=== PATIENT | male | born 1945 | race Caucasian/White ===

== ENCOUNTER 2023-09-23 11:53 | Outpatient (CLI) | payer MEDICARE, SELFPAY ==
[2023-09-23 12:01] VITALS: BP 158/79; PULSE 78; RESP 16; O2SAT 95
[2023-09-23] MEDS: TETRACAINE 0.5% OPHTH 1 DROP EYE-BOTH ×2 (12:06→12:18)
[2023-09-23] MEDS: BRIMONIDINE TARTRATE 0.2% OPHTH 1 DROP EYE-BOTH (12:07)
--- NOTE | 2023-09-23 12:46 | P.OPTPRC_ITS ---
Procedure Note Date of procedure: 09/23/23 Will [facility] bill your pro fee for this procedure?: Yes Procedure Description: SURGEON: Paige Bryant MD PREOPERATIVE DIAGNOSIS: Posterior capsular opacity, right and left eye POSTOPERATIVE DIAGNOSIS: Posterior capsular opacity, right and left eye PROCEDURE: YAG laser capsulotomy, both eyes ANESTHESIA: Topical. ESTIMATED BLOOD LOSS: None PATHOLOGY SPECIMEN: None COMPLICATIONS: None INDICATIONS: See consult note for details. The risks, benefits and alternatives of the procedure were explained to the patient, who elected to proceed and signed informed consent to do so. PROCEDURE: The patient was brought to the pre-holding area where the right and left eyes were identified as the operative eyes. I placed my initials above the eyes. The following was given in both eyes: The patient received 2 sets of 1 drop of 0.5% tetracaine and 1 drop of 1% tropicamide. They also received 1 drop of 0.2% brimonidine. They received 1 drop of 0.5% tetracaine immediately prior to bringing them back for the procedure. The patient was then brought to the procedure room where the right and left eyes were again identified as the operative eyes. A YAG Tacos capsulotomy lens was placed on the right eye. The laser was administered using a total number of 13 shots with an energy of 2.4 mJ per shot for a total energy of 31 mJ. The patient tolerated the procedure well. A YAG Tacos capsulotomy lens was placed on the left eye. The laser was administered using a total number of 17 shots with an energy of 2.4 mJ per shot for a total energy of 41 mJ. The patient tolerated the procedure well. DISPOSITION: The patient was taken back to the pre-holding area and given 1 drop of 0.2% brimonidine in both eyes. They were discharged to home in stable condition. The patient was instructed to call me or go to the emergency department with any sudden change, including dramatic loss of vision, severe pain in the eye or eyebrow region, nausea, or vomiting. The patient was instructed to use the 0.2% brimonidine 1 drop 2 times a day in both eyes for 1 week. The patient will follow up in the clinic in 1-2 weeks.
== END 2023-09-23 12:46 | disposition home or self-care (01) ==
LOC: EYE PRC 11:55
PROVIDERS: PCP Family Medicine; Visit Provider Ophthalmology
DX: H26.9 Unspecified cataract (principal)
CPT/HCPCS: 66821; A9270

== ENCOUNTER 2024-04-20 19:19 | Emergency (ER) | payer MEDICARE, SELFPAY ==
[2024-04-20 19:23] VITALS: BP 163/63; PULSE 70; RESP 22; TEMP 36.4; O2SAT 97; BMI 23.6
--- NOTE | 2024-04-20 19:34 | CRLHL7_ITS ---
For Patients: As a result of the Century Cures Act, medical imaging exams and procedure reports are released immediately into your electronic medical record. You may view this report before your referring provider. If you have questions, please contact your health care provider. Indication: Left-sided abdominal pain, history of kidney stones Technique: Volumetric multidetector CT images of the abdomen and pelvis were without the administration of intravenous contrast. Comparison: None available. Findings: The lung bases are clear. The liver is normal in attenuation without intrahepatic biliary ductal dilatation. The gallbladder is unremarkable without evidence of radiopaque calculus. There is no significant common biliary ductal dilatation or abrupt cut off. The spleen is normal in attenuation and size. The stomach and duodenum are grossly unremarkable. There is mild pancreatic atrophy. Otherwise the pancreas is within normal limits. The adrenal glands are unremarkable. Demonstration of moderate parapelvic cystic changes of the bilateral kidneys with left-sided hydronephrosis and hydroureter. There is demonstration of a 2.8 millimeter calculus in the dependent portion of the bladder. There is moderate stool seen throughout the colon with minimal colonic diverticulosis without definite evidence of diverticulitis. The appendix is unremarkable. There is no significant mesenteric, retroperitoneal, or pelvic sidewall lymph nodes. The aorta is nonaneurysmal. There is no significant atherosclerotic disease appreciated. There is mild prostatic hypertrophy. Minimal fat containing bilateral inguinal canals. There is no free fluid or free air. Small fat containing umbilical hernia. Moderate degenerative changes of the lumbar spine without acute osseous abnormality. Impression: Parapelvic cystic changes of the bilateral kidneys with left-sided hydronephrosis and hydroureter with demonstration of a 2.8 millimeter calculus in the dependent portion of the bladder. Moderate stool seen throughout the colon. Please note that all CT scans at this facility use dose modulation, iterative reconstruction, and/or weight-based dosing when appropriate to reduce radiation dose to as low as reasonably achievable. Dictated by Peyman Paige MD @ 04/20/2024 8:22:19 PM (Electronically Signed)
--- NOTE | 2024-04-20 19:35 | ED_ITS ---
HPI - Abdominal Pain General Chief Complaint: Abdominal Pain Stated Complaint: Poss kidney stone Time Seen by Provider: 04/20/24 19:31 History of Present Illness HPI narrative: This 79-year-old male comes in with left abdominal pain radiating into his left inguinal region. He is pacing in the room and states that he has a history of kidney stones. These symptoms began about 4 hours ago. Prior to this he was feeling normal. Related Data Home Medications ?Medication ?Instructions ?Recorded ?Confirmed lisinopril 10 mg tablet 10 mg PO DAILY 04/20/24 04/20/24 Allergies Allergy/AdvReac Type Severity Reaction Status Date / Time butalbital Allergy Intermediate Verified 04/20/24 19:22 morphine Allergy Intermediate Verified 04/20/24 19:22 penicillin G Allergy Intermediate Verified 04/20/24 19:22 Review of Systems Status of ROS Reports: 10 or more systems reviewed and unremarkable except as noted in History and below Narrative Constitutional: No fevers, no weight gain or loss. Eyes: No discharge. No vision changes. HENT: No congestion, no sore throat, no ear pain. Cardiovascular: No chest pain, no palpitations. Respiratory: No shortness of breath, no wheezes, no cough. Gastrointestinal: No vomiting, no diarrhea. Abdominal pain as described above. Genitourinary: No dysuria, no hematuria. Musculoskeletal: Normal range of motion. Skin: No rashes, no pruritis. Neurological: No dizziness, weakness, sensory change, speech change. Endo/Heme/Allergies: No bruising or bleeding. No polydipsia. Pysch: no suicidality, no anxiety, no insomnia. All other systems reviewed and are negative. PFSH PFSH Social History Non-prescribed substance use: denies use Exam Narrative: Exam Narrative: Constitutional: Well-developed, well-nourished, no acute distress. HEENT: Normocephalic, atraumatic. Neck: Normal range of motion. Nontender. Supple. Heart: Regular. No murmurs. Normal rate. Intact distal pulses. Lungs: Clear to auscultation. No chest discomfort. No wheezes, rhonchi, or rales. Abdomen: Normal bowel sounds. Tenderness in lower left abdomen. No rebound tenderness. Genitalia: Deferred. Back: No midline tenderness. Normal range of motion. Extremities: Normal range of motion. No injury. Skin: Intact. No rash. Warm. No erythema or pallor. Neurologic: No altered sensation. No weakness. Alert and oriented. Psychiatric: No suicidality. No anxiety or depression. No insomnia. Nursing notes and vitals signs are reviewed. Const: Vital Signs, click to edit/add: Vital Signs - 24 hr 04/20/24 19:23 Temperature 97.6 F Pulse Rate [Pulse Oximeter] 70 Respiratory Rate 22 Blood Pressure [Ri ght Upper Arm] 163/63 H Pulse Oximetry 97 Oxygen Delivery Me thod Room Air Course Vital Signs Vital signs: Initial Vital Signs Temperature 97.6 F 04/20/24 19:23 Temperature Source Temporal Artery Scan 04/20/24 19:23 Pulse Rate 70 04/20/24 19:23 Pulse Rhythm Regular 04/20/24 19:23 Respiratory Rate 22 04/20/24 19:23 Blood Pressure 163/63 H 04/20/24 19:23 Blood Pressure Mean 96 04/20/24 19:23 Blood Pressure Position Sitting 04/20/24 19:23 Pulse Oximetry 97 04/20/24 19:23 Oxygen Delivery Method Room Air 04/20/24 19:23 Vital Signs Temperature 97.6 F 04/20/24 19:23 Pulse Rate 70 04/20/24 19:23 Respiratory Rate 22 04/20/24 19:23 Blood Pressure 163/63 H 04/20/24 19:23 Pulse Oximetry 97 04/20/24 19:23 Oxygen Delivery Method Room Air 04/20/24 19:23 Temperature 97.6 F 04/20/24 19:23 Pulse Rate 70 04/20/24 19:23 Respiratory Rate 22 04/20/24 19:23 Blood Pressure 163/63 H 04/20/24 19:23 Pulse Oximetry 97 04/20/24 19:23 Oxygen Delivery Method Room Air 04/20/24 19:23 Medications Administered Medications: Discontinued Medications Generic Name Dose Route Start Last Admin Trade Name Freq PRN Reason Stop Dose Admin Hydromorphone HCl 0.5 mg 04/20/24 19:33 04/20/24 19:56 Hydromorphone 0.5 Mg/0.5 Ml Inj IVP 04/20/24 19:34 0.5 mg ONCE ONE Administration Ketorolac Tromethamine 15 mg 04/20/24 19:33 04/20/24 19:56 Ketorolac 30 Mg/Ml Inj IVP 04/20/24 19:34 15 mg ONCE ONE Administration Ondansetron HCl 4 mg 04/20/24 19:33 04/20/24 19:57 Ondansetron 2 Mg/Ml Inj IVP 04/20/24 19:34 Not Given ONCE ONE MDM - Abdominal Pain MDM Narrative Medical decision making narrative: This patient comes in with left-sided abdominal pain as described above. He has a history of kidney stones and feels like he might be passing another stone. He is pacing in the room with discomfort. He does not report any dysuria symptoms. An IV is established where he received Toradol 15 mg, Dilaudid 0.5 mg, and Zofran [address] scan of the abdomen and pelvis is obtained. There is a 2.8 mm stone identified in the dependent portion of the bladder. There is some mild hydronephrosis upstream on the left ureter. The patient states that his pain is almost completely gone. He is okay to be discharged home. Imaging Data CT scan - abdomen: Radiologist's impression: Parapelvic cystic changes of the bilateral kidneys with left-sided hydronephrosis and hydroureter with demonstration of a 2.8 millimeter calculus in the dependent portion of the bladder. Discharge Plan Discharge Clinical Impression: Calculus, ureteral Patient Disposition: Home w/ Parent or Adult Condition: Improved Additional Instructions: Resume current plans. Take plenty of fluids. Follow up with MD return if worsening. Prescriptions: No Action lisinopril 10 mg tablet 10 mg PO DAILY Follow Up/Referrals: Mary Grace Pepe MD [Primary Care Provider] - Stand Alone Forms: [employer] Info Instructions
[2024-04-20] MEDS: KETOROLAC 30 MG/ML inj 15 MG IVP (19:56)
[2024-04-20] MEDS: HYDROmorphone 0.5 mg/0.5 ml inj IVP (19:56)
[2024-04-20 20:37] LABS: Appearance Urine Clear (Clear); Bilirubin Urine Negative (Negative); Blood Urine Trace-intact (Negative); Color Urine Yellow (Yellow); Glucose Urine Negative (Negative); Ketones Urine Trace (Negative); Leukocyte Esterase Urine Negative (Negative); Nitrite Urine Negative (Negative); Protein Urine 1+ (Negative); RBC Urine 0-2 (0-2); Specific Gravity Urine 1.025 (1.000-1.030); Urobilinogen Urine 0.2 (0.2-1.0); WBC Urine 0-2 (0-5)
[2024-04-20 20:38] LABS: Bacteria Urine Few
--- NOTE | 2024-04-20 20:55 | PC.NURSE ---
DC instruction reviewed with patient, he has no furter questions. patient DC ambulatory w/o pain.
== END 2024-04-20 20:56 | disposition home or self-care (01) ==
LOC: ED 20:42
PROVIDERS: Emergency Provider Emergency Medicine Emergency Medical Services; PCP Family Medicine
DX: N20.1 Calculus of ureter (principal)
CPT/HCPCS: 74176; 81001; 87086; 96374; 96375; 99283; 99284; J1170; J1885